=== PATIENT | female | born 1955 | race Caucasian/White ===

== ENCOUNTER 2017-01-16 23:57 | Emergency (ER) | payer SELFPAY ==
[~2017-01-16] VITALS: Ht 160 cm; Wt 71.5 kg
[~2017-01-16 23:57] MED LIST: IBUP-1542 PO; LISI10TA2 PO; OMEP10SU PO
[2017-01-17 00:12] VITALS: Ht 160 cm; Wt 71.5 kg
[2017-01-17] MEDS ORDERED: ASPIRIN 325 MG TAB PO STA (00:49)
[2017-01-17 01:33] LABS: BASOPHIL # 0.1 10^3/ul (0.0-0.1); BASOPHILS % 0.8 % (0.0-2.0); EOSINOPHILS # 0.2 10^3/ul (0.0-0.5); EOSINOPHILS % 2.3 % (0.0-7.0); HEMATOCRIT 37.9 % (37.0-47.0); HEMOGLOBIN 12.3 g/dl (12.0-16.0); LYMPHOCYTES # 2.6 10^3/ul (0.8-2.9); LYMPHOCYTES % 39.8 % (15.0-51.0); MEAN CORPUSCULAR HEMOGLOBIN 25.2 pg (29.0-33.0); MEAN CORPUSCULAR HGB CONC 32.5 g/dl (32.0-37.0); MEAN CORPUSCULAR VOLUME 77.5 fl (82.0-101.0); MEAN PLATELET VOLUME 10.6 fl (7.4-10.4); MONOCYTE # 0.6 10^3/ul (0.3-0.9); MONOCYTES % 9.8 % (0.0-11.0); NEUTROPHILS % 47.1 % (39.0-77.0); PLATELET COUNT 235 10^3/UL (140-415); RED BLOOD COUNT 4.89 10^6/ul (4.20-5.40); RED CELL DISTRIBUTION WIDTH 13.8 % (11.5-14.5); WHITE BLOOD COUNT 6.6 10^3/ul (4.8-10.8)
--- NOTE | 2017-01-17 01:36 | RADRPT ---
PROCEDURE: XR Chest. CLINICAL INDICATION: Chest pain. TECHNIQUE: Single frontal chest x-ray. COMPARISON: 11/10/2013 FINDINGS: Heart is enlarged.. Pulmonary vessels are top normal in caliber.. No focal infiltrate is seen. The re is no pleural effusion. There is no pneumothorax. The osseous structures are unremarkable. IMPRESSION: Cardiomegaly. Pulmonary vessels top normal caliber. RPTAT: HMVK .Jimmy Garland MD, MD Date Time Electronically viewed and signed by .Jimmy Garland MD, on 01/17/2017 01:36 .K/
[2017-01-17 01:50] LABS: ANION GAP 8 (8-16); BLOOD UREA NITROGEN 15 mg/dl (7-20); CALCIUM 9.3 mg/dl (8.4-10.2); CARBON DIOXIDE 27 mmol/L (21-31); CHLORIDE 106 mmol/L (97-110); CREATININE 0.85 mg/dl (0.44-1.00); GLUCOSE 114 mg/dl (70-220); SODIUM 137 mmol/L (135-144)
[2017-01-17 02:03] LABS: TROPONIN-I < 0.012 ng/ml (0.00-0.12)
[2017-01-17] MEDS ORDERED: FAMO40TA38 PO (02:03)
[2017-01-17] MEDS ORDERED: MULTI PO (02:05)
[2017-01-17] MEDS ORDERED: AMLO-218 PO (05:07)
[2017-01-17 05:10] VITALS: BP 136/76; PULSE 51; RESP 20
--- NOTE | 2017-01-17 05:25 | ERD ---
ER Documentation Chief Complaint Date/Time DATE: 01/17/17 TIME: 05:18 Chief Complaint bib son for high blood pressure and chest pressure, unkown lisinopril taken HPI This 61-year-old female presents emergency room for no significant she had higher blood pressure at home. She checked it because earlier in the night she had an episode where she felt Anxious and had a sensation where she felt hot the entire anterior upper body and had some mild shortness of breath. She has primary care follow-up and is treated with only lisinopril for hypertension. She has since started feeling much better and currently does not have symptoms. ROS All systems reviewed and are negative except as per history of present illness. Medications Home Meds Active Scripts Amlodipine Besylate* (Norvasc*) 10 Mg Tablet, 10 MG PO DAILY, #30 TAB Prov:HILARY QUICK DO 01/17/17 Ibuprofen* (Motrin*) 600 Mg Tab, 600 MG PO Q8H Y for PAIN OR TEMP ABOVE 38C, # 10 TAB Prov:PRIYA HACKETT NP 01/28/14 Lisinopril* (Lisinopril*) 10 Mg Tablet, 10 MG PO DAILY, #30 0 Refills Prov:PRIYA HACKETT [employer] 01/28/14 Reported Medications Multivitamins* (Theragran*) 1 Tab Tab, 1 TAB PO DAILY, TAB 01/17/17 Famotidine* (Pepcid*) 40 Mg Tablet, 40 MG PO HS, #30 TAB 01/17/17 Discontinued Scripts Omeprazole* (Prilosec*) 10 Mg Suspdr.pkt, 10 MG PO DAILY for 30 Days, PKT Prov:PRIYA HACKETT [employer] 01/28/14 Allergies Allergies: Coded Allergies: acetaminophen (Unverified Allergy, Mild, RASH, 01/17/17) hydrocodone (Unverified Allergy, Mild, RASH, 01/17/17) Penicillins (Unverified Allergy, Unknown, 01/17/17) PMhx/Soc History of Surgery: Yes (gallstones removal,,hysterectomy) Anesthesia Reaction: No Hx Neurological Disorder: No Hx Respiratory Disorders: No Hx Cardiac Disorders: Yes (htn) Hx Psychiatric Problems: No Hx Miscellaneous Medical Probl: No Hx Alcohol Use: Yes (rarely) Hx Substance Use: No Hx Tobacco Use: No Smoking Status: Never smoker Physical Exam Vitals Vital Signs Date Time Temp Pulse Resp B/P Pulse Ox O2 Delivery O2 Flow Rate FiO2 01/17/17 05:10 51 20 136/76 99 Room Air 01/17/17 00:56 49 16 175/110 99 Room Air 01/17/17 00:12 98.6 82 18 178/81 100 Physical Exam Const: [] No distress Head: Atraumatic Eyes: Normal Conjunctiva ENT: Normal External Ears, Nose and Mouth. Neck: Full range of motion..~ No meningismus. Resp: Clear to auscultation bilaterally Cardio: Regular rate and rhythm, no murmurs Abd: Soft, non tender, non distended. Normal bowel sounds Skin: No petechiae or rashes Back: No midline or flank tenderness Ext: No cyanosis, or edema Neur: Awake and alert Oriented 3, no focal deficit Psych: Normal Mood and Affect Result Diagram: 01/17/17 0110 01/17/17 0110 Results 24 hrs Laboratory Tests Test 01/17/17 01:10 White Blood Count 6.610^3/ul Red Blood Count 4.8910^6/ul Hemoglobin 12.3g/dl Hematocrit 37.9% Mean Corpuscular Volume 77.5fl Mean Corpuscular Hemoglobin 25.2pg Mean Corpuscular Hemoglobin Concent 32.5g/dl Red Cell Distribution Width 13.8% Platelet Count 42732^3/UL Mean Platelet Volume 10.6fl Neutrophils % 47.1% Lymphocytes % 39.8% Monocytes % 9.8% Eosinophils % 2.3% Basophils % 0.8% Nucleated Red Blood Cells % 0.0/100WBC Neutrophils # (Manual) 3.110^3/ul Lymphocytes # 2.610^3/ul Monocytes # 0.610^3/ul Eosinophils # 0.210^3/ul Basophils # 0.110^3/ul Nucleated Red Blood Cells # 0.010^3/ul Sodium Level 137mmol/L Potassium Level 4.0mmol/L Chloride Level 106mmol/L Carbon Dioxide Level 27mmol/L Anion Gap 8 Blood Urea Nitrogen 15mg/dl Creatinine 0.85mg/dl Glucose Level 114mg/dl Calcium Level 9.3mg/dl Troponin I < 0.012ng/ml Current Medications Medications (Trade) Dose Ordered Sig/Kar Route PRN Reason Start Time Stop Time Status Last Admin Dose Admin Aspirin (Aspirin) 325 mg ONCE STAT PO 01/17/17 00:49 01/17/17 00:52 DC 01/17/17 01:09 Amlodipine Besylate (Norvasc) 10 mg ONCE ONCE PO 01/17/17 05:30 01/17/17 05:31 Procedures/MDM During episode of 61-year-old female. Episode sounds like maybe an anxiety attack however because of patient's age and risk factor workup was performed to look for any acute cardiac cause. Serious abnormality was found. She is asymptomatic shortly after arrival to the emergency room. She was given aspirin 325 mg. She did have a single reading of the high blood pressure the diastolic over 100 however this was unable to be repeated on multiple blood pressure checks. This point lowering her blood pressure acutely in the emergency room and IV medication or p.o. nicardipine seems to have risks that outweigh the benefits. Did give her an amlodipine. I am going to discharge her with amlodipine as well and instructions to follow-up with her primary care doctor and keep a blood pressure diary. She currently has no symptoms in the ER and does not want to stay in the hospital I am going to discharge her with instructions to return emergency room immediately if she has any other concerning symptoms and follow-up with her primary care doctor. I am also pending her laboratories and EKG for her. EKG interpretation: Sinus rhythm rate of 89, normal axis, normal intervals, ST depressions in inferior leads III and aVF. [employer] internship interpretation: Normal sinus rhythm without arrhythmia Chest x-ray interpretation: See no acute process, no wide mediastinum, no pneumothorax, no pulmonary edema, no fractures. Departure Diagnosis: Primary Impression: Episode of dizziness Additional Impression: Chest discomfort Condition: Stable Patient Instructions: Hypertension, Established, Out Of Control Additional Instructions: Llame al doctor MAJACOBO y hiram linda LAI PARA DENTRO DE 1-2 CONTRERAS.Dgale a la secretaria que nosotros le instruimos hacer esta lia.Avise o llame si finn condicin se empeora antes de la lia. Regresa aqui si peor o no mejor. HILARY QUICK DO Jan 17, 2017 05:25
[2017-01-17] MEDS ORDERED: AMLODIPINE 10 MG TAB PO ONE (05:30)
== END 2017-01-17 05:44 | disposition home or self-care (01) ==
LOC: E/R 23:57
DX: R42 Dizziness and giddiness (principal); R40.2252 Coma scale, best verbal response, oriented, at arrival to emergency department; I10 Essential (primary) hypertension; R40.2142 Coma scale, eyes open, spontaneous, at arrival to emergency department; R40.2362 Coma scale, best motor response, obeys commands, at arrival to emergency department
CPT/HCPCS: 36415; 71010; 80048; 84484; 85025; 93005

== ENCOUNTER 2018-03-23 00:03 | Emergency (ER) | END 2018-03-23 03:15 | disposition home or self-care (01) ==